=== PATIENT | female | born 1955 | race Caucasian/White ===

== ENCOUNTER → 2022-03-27 | Outpatient (CLI) | payer MEDICARE, MEDICAID | LOC: ORTHO 09:30 | PROVIDERS: ATTEND Orthopaedic Surgery | DX: M17.11 Unilateral primary osteoarthritis, right knee (principal) | CPT/HCPCS: 20610 ==

== ENCOUNTER → 2023-02-17 | Outpatient (CLI) | payer MEDICARE, MEDICAID | LOC: ORTHO 10:39 | PROVIDERS: ATTEND Orthopaedic Surgery | DX: M76.61 Achilles tendinitis, right leg (principal); M17.11 Unilateral primary osteoarthritis, right knee | CPT/HCPCS: 99213 ==

== ENCOUNTER → 2023-05-19 | Outpatient (CLI) | payer MEDICARE, MEDICAID | LOC: ORTHO 11:50 | PROVIDERS: ATTEND Orthopaedic Surgery | DX: M76.61 Achilles tendinitis, right leg (principal); M17.11 Unilateral primary osteoarthritis, right knee | CPT/HCPCS: 99213 ==

== ENCOUNTER → 2023-06-01 | Outpatient (CLI) | payer MEDICARE, MEDICAID ==
--- NOTE | 2023-06-01 11:07 | Diagnostic Imaging Report ---
EXAMINATION: Magnetic resonance imaging of the right ankle without contrast. DATE: June 01, 2023. COMPARISON: None. HISTORY: 68-year-old female, right ankle pain and concern for Achilles tendon tear. TECHNIQUE: Magnetic Resonance Imaging sequences were performed of the ankle without contrast. FINDINGS: TENDONS AND LIGAMENTS: There is a high-grade partial tear of the Achilles tendon. The tear is involving the medial half of the tendon and 50-75% of the anterior to posterior extent of the Achilles tendon. The torn and retracted tendon fibers are approximately 4.8 cm proximal to the Achilles tendon insertion. The posterior flexor tendons - tibialis posterior, flexor digitorum longus, flexor hallucis longus - are intact. The peroneal tendons - peroneus longus and peroneus brevis - are intact. The anterior extensor tendons - tibialis anterior, extensor hallucis longus and extensor digitorum longus tendons - are intact. The anterior and posterior syndesmotic ligaments are intact. The anterior talofibular, posterior talofibular, calcaneofibular and deltoid ligaments are intact. The plantar fascia is intact. JOINTS: The ankle mortise is intact. The subtalar and visualized joints of the mid-foot are intact. BONE: The bones all have normal configuration. The bone marrow signal is within normal limits. Specifically, negative for fracture, osteomyelitis, osteonecrosis, or marrow replacing process. The talar dome is intact. BURSAE AND SOFT TISSUES: There is prominent diffuse subcutaneous edema. IMPRESSION: 1. High-grade partial tear of the Achilles tendon which is a greater than 50% thickness tear as discussed above with torn and retracted tendon fibers approximately 4.8 cm proximal to the Achilles tendon insertion. 2. Additional tendons are intact. 3. Intact ankle ligaments. 4. No acute fracture, bone contusion, or other notable bone marrow signal abnormality. Dictated on workstation # [id number]
== END ==
LOC: RAD 07:41
PROVIDERS: ATTEND Orthopaedic Surgery
DX: S86.011A Strain of right Achilles tendon, initial encounter (principal); M67.871 Other specified disorders of synovium, right ankle and foot
CPT/HCPCS: 73721